=== PATIENT | female | born 1995 | race Hispanic/Latino ===

== ENCOUNTER 2024-02-27 17:24 | Emergency (ER) | payer OTHER, SELFPAY ==
[2024-02-27 17:26] VITALS: BP 107/75
--- NOTE | 2024-02-27 17:31 | ED.PDOC.TRB ---
ED Provider Triage
-
Patient seen by provider in Triage?: Seen in Triage
A medical screening examination has been initiated by a qualified medical provider. Based on the assessment performed at this time, it has been determined that an emergent medical condition may exist and the patient has been informed that further
medical evaluation and possible additional diagnostic testing may be needed.
HPI: This is a medical evaluation conducted in person to initiate diagnostic evaluation and provide initial therapeutics. Please see further documentation by the treating clinician.
GENERAL: Alert ,tearful
EYE: No visual abnormalities.
NECK: Trachea midline
ENT: No visible abnormalities.
LUNGS: No acute respiratory distress
NEUROLOGICAL: Alert and oriented
SKIN: no visible lesions.
MUSCULOSKELETAL: Moving extremities normally
PSYCH: Normal and appropriate interaction.
28-year-old female presenting to the emergency department today [id number] weeks G4, P3. Has had vaginal bleeding and pelvic discomfort throughout the day today. She has followed up was found to have twin gestation without complications
with previous ultrasound. Plan for initial labs and Rh
[2024-02-27 17:51] LABS: % Basophils 0.3 % (0-2); % Immature Granulocytes 0.1 % (0-0.5); % Lymphocytes 30.2 % (20.5-51.1); % Monocytes 4.7 % (1.7-9.3); % Neutrophils 63.7 % (42.2-75.2); Absolute Eosinophils 0.1 10^3/uL (0-0.7); Absolute Lymphocytes 2.1 10^3/uL (1.2-3.4); Absolute Monocytes 0.3 10^3/uL (0.1-0.6); Absolute Neutrophils 4.5 10^3/uL (1.4-6.5); Hematocrit 35.2 % (37.0-47.0); Hemoglobin 12.7 g/dL (12.0-16.0); Mean Corp Hgb Conc. 36.1 g/dL (33.0-37.0); Mean Corpuscular Hgb 30.7 pg (27.0-31.0); Mean Platelet Volume 11.7 fL (7.4-10.4); Nucleated Red Blood Cells % 0 %; Platelet Count 172 10^3/uL (130-400); Red Blood Cell Count 4.14 10^6/uL (4.20-5.40); Red Cell Dist. Width 12.9 % (11.5-14.5)
[2024-02-27 18:02] LABS: ALT (SGPT) 12 U/L (0-35); AST (SGOT) 19 U/L (14-36); Albumin 4.5 g/dl (3.5-5.0); Alkaline Phosphatase 77 U/L (38-126); Blood Urea Nitrogen 9 mg/dl (7-17); Calcium 9.5 mg/dl (8.4-10.2); Carbon Dioxide 28 mmol/L (22-30); Chloride 102 mmol/L (98-107); Glucose 113 mg/dl (70-99); Potassium 3.6 mmol/L (3.5-5.1); Sodium 141 mmol/L (135-145); Total Bilirubin 0.8 mg/dl (0.2-1.3); Total Protein 7.1 g/dl (6.3-8.2); eGFR > 60.00
--- NOTE | 2024-02-27 19:31 | ED.GENMED ---
History of Present Illness
General
Chief Complaint: Vaginal Bleeding
Source: patient
Time Seen by Provider: 02/27/24 19:21
History of Present Illness
History of Present Illness:
female currently at 7 weeks by LMP presenting for evaluation of vaginal bleeding. Patient started having lower abdominal cramping yesterday and started having vaginal bleeding this evening. The bleeding is described as a heavy period.
She reports having an ultrasound 2 days ago and she was told that her was only 5 weeks along. She denies any dysuria, fevers, syncope. She follows with OBGYN at [facility].
Past History
Past History
ED Past Medical History: None
Social History
Tobacco: Non-smoker
Phy Exam
General Physical Exam
General Presentation: well appearing and no apparent distress
General age: appears stated age
General Skin: warm and dry
General Habitus: normal
General Mental: alert
Pulmonary Exam
Pulmonary Exam: no respiratory distress
Gastrointestinal Exam
Gastrointestinal Exam: non tender, soft and non distended
Neurological Exam
Neurological Exam: alert
Willis Coma Scale
Eye Opening: Spontaneous
Verbal Response: Oriented
Motor Response: Obeys Commands
GCS Total Score: 15
Skin Exam
Skin Exam: normal color and warm/dry
Psychiatric Exam
Psychiatric Exam: normal mood/affect
Course
Orders/Labs/Results
Orders:
Orders
02/27/24 17:34
Blood Group&Type Urgent
Beta HCG Quantitative Urgent
Is this a screen?: No
Complete Blood Count/With Diff Urgent
Comprehensive Metabolic Panel Urgent
02/27/24 19:29
US Transvaginal Only Urgent
Reason For Exam: Vaginal bleeding, cramping in 1st trimester
02/27/24 20:12
ABO2 Urgent
BBK Wristband Number:
Associate notified that ABO2 has been ordered: [id number]
Date: 02/27/24
Time: 17:58
Medical Collections Representative ID: [id number]
Abnormal Lab Results
02/27/24
17:34
RBC 4.14 L 10^6/uL
(4.20-5.40)
Hct 35.2 L %
(37.0-47.0)
MPV 11.7 H fL
(7.4-10.4)
Creatinine 0.5 L mg/dL
(0.6-1.0)
Glucose 113 H mg/dl
(70-99)
02/27/24 17:34
02/27/24 17:34
Vital Signs
Initial and Last Documented VS:
Initial Vital Signs
Temp Pulse Resp BP Pulse Ox
98.6 F 99 20 107/75 99
02/27/24 17:26 02/27/24 17:26 02/27/24 17:26 02/27/24 17:26 02/27/24 17:26
Last Documented Vital Signs
Temp Pulse Resp BP Pulse Ox
98.6 F 89 20 90/56 98
02/27/24 17:26 02/27/24 22:07 02/27/24 22:07 02/27/24 22:07 02/27/24 22:07
MDM/Problems Addressed
Differential Diagnosis Includes:
28yoF here with vaginal bleeding and abdominal cramping in 1st trimester. She is afebrile and hemodynamically stable. She is well appearing in no distress. Exam is reassuring. Differential diagnosis includes but is not limited to: threatened
miscarriage, miscarriage, ectopic
Initial ED plan: Check CBC, CMP, HCG, ABO/Rh, and pelvic ultrasound.
*Critical Care Note
Total Time (30-74mins, 75-104mins- exclusive of procedures): Not Applicable
Update Note
Update Note:
Hemoglobin normal. HCG is 15k. Blood type is B+, no indication for RhoGAM. Pelvic ultrasound shows two possible gestational sacs without poles. is of unknown anatomic location. Findings discussed with patient. She was advised to f/u
closely with her OBGYN for serial HCGs/ultrasound. Strict ED return precautions discussed. She was discharged in stable condition.
ED Attending Note
-
Portions of this chart may have been created with voice recognition software.� Occasional wrong word or��sound alike� substitutions may have occurred due to the inherent limitations of voice recognition software.
Discharge Plan
Departure
Patient Disposition: Home (Routine Discharge)
Date of Disposition: 02/27/24
Time of Disposition: 21:55
Patient with high blood pressure during this ER visit?: No
Discharge Problem:
Threatened miscarriage in early , of unknown anatomic location
Instructions: Threatened Miscarriage (DC)
Referrals:
Veena Burciaga, DO [Active] -
NONE,* [Family Provider] -
Activity Restrictions/Additional Instructions:
Please call your OBGYN tomorrow for follow-up. You will need repeat blood testing and a repeat ultrasound.
Return to the ER with any severe pain, passing out, or if you are bleeding through >2 pads/hour for 2+ hours.
Interventions
Interventions:
*Risk Screen - Suicide Last Done: 02/27/24 17:26
*General Assessment Last Done: 02/27/24 17:26
*Neglect/Abuse Screening Last Done: 02/27/24 17:26
*Nursing Disposition Last Done: 02/27/24 22:07
ED-Female Genitourinary Assessment Last Done: 02/27/24 20:14
Discharge Date and Time
Discharge Date/Time: 02/27/24 22:10
Print Language: ITALIAN
[2024-02-27 21:41] VITALS: BP 90/56
[2024-02-27 22:07] VITALS: BP 90/56
== END 2024-02-27 22:10 | disposition home or self-care (01) ==
LOC: EMR 17:24
PROVIDERS: Physician Assistant; EMERGENCY PHYSICIAN Emergency Medicine
DX: O20.0 Threatened abortion (principal); Z3A.01 Less than 8 weeks gestation of pregnancy
CPT/HCPCS: 99284; 76817; 80053; 84702; 85025; 86900; 86901